=== PATIENT | male | born 1975 | race Caucasian/White ===

== ENCOUNTER 2017-10-28 00:23 | Emergency (ER) | payer OTHER ==
[~2017-10-28] VITALS: Ht 177.8 cm; Wt 93.0 kg
[2017-10-28 00:28] VITALS: BP 150/90
--- NOTE | 2017-10-28 02:50 | NUR ---
PATIENT FELLS BETTER, TO SEE THE PMD TODAY PATIENT LEFT WITHOUT BEING SEEN BY DR. JOSEPH. NO FURTHER CARE PROVIDED FOR PATIENT.
== END 2017-10-28 02:50 | disposition left against medical advice (07) ==
LOC: MED 00:23
DX: R11.10 Vomiting, unspecified (principal); Z53.21 Procedure and treatment not carried out due to patient leaving prior to being seen by health care provider